=== PATIENT | female | born 2000 | race Caucasian/White ===

== ENCOUNTER 2018-09-17 10:23 | Outpatient (CLI) | payer OTHER ==
[~2018-09-17] VITALS: Ht 157.5 cm; Wt 63.9 kg
[2018-09-17 10:31] VITALS: BP 111/58; PULSE 65; RESP 18; Ht 157.5 cm; Wt 63.9 kg
[2018-09-17] MEDS ORDERED: FAMOTIDINE 20 MG TAB PO ONE (11:00)
--- NOTE | 2018-09-17 17:07 | PN ---
Triage Information Date/Time Reason for visit: Upper abdominal pain with radiation to back Weeks of Gestation 28 weeks and 5 days /Para G1 Diabetes: none Hypertention: none Objective Vital Signs Date Temp Pulse Resp B/P (MAP) Pulse Ox O2 O2 Flow FiO2 Time Delivery Rate 09/17/18 98.1 65 18 111/58 10:31 (75) Heart Rate: 130's Contractions: None Results/Medications Result Diagram: 09/17/18 1112 09/17/18 1112 Results 24 hrs Laboratory Tests Test 09/17/18 10:40 09/17/18 11:12 Urine Color LOGAN Urine Clarity CLOUDY A Urine pH 5.0 Urine Specific [place] 1.017 Urine Ketones NEGATIVE Urine Nitrite NEGATIVE Urine Bilirubin NEGATIVE Urine Urobilinogen NEGATIVE Urine Leukocyte Esterase 2+ H Urine Microscopic RBC 7 H Urine Microscopic WBC 12 H Urine Squamous Epithelial Cells MANY A Urine Bacteria FEW A Urine Mucus MANY A Urine Hemoglobin NEGATIVE Urine Glucose NEGATIVE Urine Total Protein NEGATIVE White Blood Count 9.4 Red Blood Count 4.36 Hemoglobin 12.0 Hematocrit 36.2 L Mean Corpuscular Volume 83.0 Mean Corpuscular Hemoglobin 27.5 L Mean Corpuscular Hemoglobin Concent 33.1 Red Cell Distribution Width 14.9 H Platelet Count 226 Mean Platelet Volume 10.1 Immature Granulocytes % 0.500 H Neutrophils % 75.6 H Lymphocytes % 19.0 Monocytes % 4.0 Eosinophils % 0.7 Basophils % 0.2 Nucleated Red Blood Cells % 0.0 Immature Granulocytes # 0.050 H Neutrophils # 7.1 Lymphocytes # 1.8 Monocytes # 0.4 Eosinophils # 0.1 Basophils # 0.0 Nucleated Red Blood Cells # 0.0 Sodium Level 138 Potassium Level 3.9 Chloride Level 106 Carbon Dioxide Level 23 Anion Gap 9 Blood Urea Nitrogen 6 L Creatinine 0.55 Est Glomerular Filtrat Rate mL/min > 60 Glucose Level 78 Calcium Level 9.1 Total Bilirubin 0.4 Direct Bilirubin 0.00 Indirect Bilirubin 0.4 Aspartate Amino Transf (AST/SGOT) 16 Alanine Aminotransferase (ALT/SGPT) 9 L Alkaline Phosphatase 104 Total Protein 6.7 Albumin 3.7 Globulin 3.00 Albumin/Globulin Ratio 1.23 Amylase Level 83 Lipase 59 Disposition: Discharge Assessment/Plan 18 years old 1 with single intrauterine at 28 weeks and 5 days with a [place] of 12/05/2018 complaining of upper abdominal pain with radiation to back. She states good movement. She denies nausea, vomiting, shortness of breath, chest pain, headache, visual changes, vaginal bleeding or LOF. -FHR: No sign of metabolic acidosis- Category I -Contractions: None -Ultrasound performed: Normal MADDI -Abdominal ultrasound performed, no cholelithiasis. Mild to moderate right hydronephrosis. No biliary dilation. -Pepcid 20 mg p.o. given. Recommend using Tums or Pepcid. -Symptoms and sign of labor, preeclampsia, kick count discussed with patient, she voiced understanding. All of her questions answered. -Patient was discharged home in stable condition with the appropriate discharge instructions provided. I would like patient to have close follow-up with her primary physician or outpatient clinic in 1-2 days or return to triage for worsening symptoms or any other urgent concerns. LELA PETERSON Sep 17, 2018 17:07
== END 2018-09-17 13:00 | disposition home or self-care (01) ==
LOC: OBT 10:23 → L-D 10:24 → OBT 13:00
PROVIDERS: ATTEND Obstetrics & Gynecology
DX: O26.893 Other specified pregnancy related conditions, third trimester (principal); R10.10 Upper abdominal pain, unspecified; Z3A.28 28 weeks gestation of pregnancy
CPT/HCPCS: 76705; 76815; 80053; 81001; 82150; 83690; 85025; 87086; Z7500; Z7610; G0463